=== PATIENT | male | born 1970 | race Caucasian/White ===

== ENCOUNTER 2018-04-24 06:28 | Day surgery (SDC) | payer BC ==
[2018-04-24] MEDS ORDERED: DIPRIVAN 200 MG/20 ML IV ONE (06:29)
[2018-04-24] MEDS ORDERED: Lactated Ringers 1,000 ML IV ONE (06:40)
[2018-04-24] MEDS ORDERED: Lactated Ringers 1,000 ML IV SCH (07:00)
[2018-04-24] MEDS ORDERED: GlucaGen 1 MG ONE (08:35)
[2018-04-24 09:21] VITALS: O2SAT 98
[2018-04-24 09:39] VITALS: BP 109/69; PULSE 55
--- NOTE | 2018-04-24 12:42 | OP ---
SURGERY DATE/TIME: 04/24/2018 0822 PREOPERATIVE DIAGNOSIS: Screening. POSTOPERATIVE DIAGNOSIS: Normal. PROCEDURE: Colonoscopy complete to cecum. SURGEON: Nitish Eduardo M.D. ANESTHESIA: MAC. COMPLICATIONS: None. CONDITION: Stable. INDICATION: A patient requiring evaluation. DESCRIPTION OF PROCEDURE: Taken to endoscopy. MAC sedation provided. Anal digital examination satisfactory. Prostate satisfactory. Scope advanced to the cecum. Base of cecum, ileocecal valve and appendiceal orifice, ascending, hepatic, transverse, splenic, descending, sigmoid, rectum, anus normal. The patient tolerated the procedure well. IMPRESSION: Normal examination. Ten year follow up unless symptoms.
== END 2018-04-24 09:35 | disposition home or self-care (01) ==
LOC: SDC 06:28
PROVIDERS: ATTEND Surgery
DX: Z12.11 Encounter for screening for malignant neoplasm of colon (principal)
CPT/HCPCS: J1610; J2704

== ENCOUNTER 2019-04-12 14:09 | Emergency (ER) | payer BC ==
[2019-04-12] MEDS ORDERED: MORPHINE SULFATE 4 MG INJ IV ONE (14:29)
[2019-04-12] MEDS ORDERED: Zofran 4 MG/2 ML VIAL IV ONE (14:29)
--- NOTE | 2019-04-12 14:29 | ERPHSYRPT ---
- History of Present Illness Time Seen by Provider: 04/12/19 14:20 Historian: patient Exam Limitations: no limitations Patient Subjective Stated Complaint: STATES THIS MORNING HAD SUDDEN ONSET RLQ ABD PAIN THAT RADIATES INTO RIGHT LOWER BACK. VOMITED TIMES ONE IN ER WAITING ROOM Triage Nursing Assessment: AMBULATED TO ROOM PER SELF. SKIN W/D, COLOR NORMAL. ABD SOFT, TENDER. NORMAL BOWEL SOUNDS. Physician History: about 2 hours ago pt started with RLQ abdominal pain radiating into the right lower back with nausea and vomiting x1; last bm was today and small without blood. pt denies fever, chest pain, dysuria. Allergies/Adverse Reactions: No Known Drug Allergies Allergy (Verified 04/12/19 14:22) Hx Tetanus, Diphtheria Vaccination/Date Given: Yes Hx Influenza Vaccination/Date Given: Yes Hx Pneumococcal Vaccination/Date Given: No - Review of Systems Constitutional: No Fever Respiratory: No Dyspnea Cardiac: No Chest Pain Abdominal/Gastrointestinal: Abdominal Pain (rlq pain today.), Nausea, Vomiting Genitourinary Symptoms: No Dysuria Musculoskeletal: Back Pain (right lower back pain today.) All Other Systems: Reviewed and Negative - Past Medical History Pertinent Past Medical History: No Neurological History: No Pertinent History ENT History: No Pertinent History Cardiac History: No Pertinent History Respiratory History: No Pertinent History Endocrine Medical History: No Pertinent History Musculoskeletal History: No Pertinent History GI Medical History: No Pertinent History History: No Pertinent History Psycho-Social History: No Pertinent History Male Reproductive Disorders: No Pertinent History - Past Surgical History Past Surgical History: Yes Neuro Surgical History: No Pertinent History Cardiac: No Pertinent History Respiratory: No Pertinent History Gastrointestinal: No Pertinent History Genitourinary: No Pertinent History Musculoskeletal: No Pertinent History Male Surgical History: No Pertinent History - Social History Smoking Status: Never smoker Exposure to second hand smoke: No Drug Use: none Patient Lives Alone: No - Nursing Vital Signs Nursing Vital Signs: Initial Vital Signs Temperature 97.5 F 04/12/19 14:12 Pulse Rate 56 L 04/12/19 14:12 Respiratory Rate 16 04/12/19 14:12 Blood Pressure 148/78 04/12/19 14:12 O2 Sat by Pulse Oximetry 99 04/12/19 14:12 Pain Scale Pain Intensity 8 - Physical Exam General Appearance: alert Eye Exam: PERRL/EOMI Ears, Nose, Throat Exam: pharynx normal, moist mucous membranes Neck Exam: normal inspection Respiratory Exam: lungs clear Cardiovascular Exam: normal heart sounds Gastrointestinal/Abdomen Exam: soft, normal bowel sounds, tenderness (mild RLQ tenderness) Back Exam: normal inspection Extremity Exam: No pedal edema Neurologic Exam: alert, cooperative Skin Exam: warm, dry SpO2 Interpretation: normal SpO2: 99 O2 Delivery: Room Air - CT Exams Abdomen/Pelvis CT Interpretation: Tele-radiologist Report (no acute findings) Ordered Tests: Active Orders 24 hr Category Date Time Status IV Insertion STAT Care 04/12/19 14:29 Active ABDOMEN AND PELVIS W/0 CONTRAS [CT] Stat Exams 04/12/19 14:30 Taken AMYLASE Stat Lab 04/12/19 14:30 Completed CBC W DIFF Stat Lab 04/12/19 14:30 Completed CMP Stat Lab 04/12/19 14:30 Completed CULTURE,URINE Stat Lab 04/12/19 14:30 Received LIPASE Stat Lab 04/12/19 14:30 Completed UA W/RFX UR CULTURE Stat Lab 04/12/19 14:30 Completed Medication Summary Generic Name Dose Route Start Last Admin Trade Name Freq PRN Reason Stop Dose Admin Sodium Chloride 1,000 mls @ 100 mls/hr 04/12/19 14:30 04/12/19 14:40 Sodium Chloride 0.9% 1000 Ml IV 05/12/19 14:29 100 mls/hr .Q10H MARCELA Administration Discontinued Medications Generic Name Dose Route Start Last Admin Trade Name Freq PRN Reason Stop Dose Admin Hydromorphone HCl 1 mg 04/12/19 15:29 04/12/19 15:31 Hydromorphone 1 Mg/Ml Ampule IV 04/12/19 15:30 1 mg STAT ONE Administration Hydromorphone HCl Confirm 04/12/19 15:30 Hydromorphone 1 Mg/Ml Ampule Administered 04/12/19 15:31 Dose 1 mg .ROUTE .STK-MED ONE Morphine Sulfate 4 mg 04/12/19 14:29 04/12/19 14:40 Morphine Sulfate 4 Mg Inj IV 04/12/19 14:30 4 mg STAT ONE Administration Morphine Sulfate Confirm 04/12/19 14:32 Morphine Sulfate 4 Mg Inj Administered 04/12/19 14:33 Dose 4 mg .ROUTE .STK-MED ONE Ondansetron HCl 4 mg 04/12/19 14:29 04/12/19 14:40 Zofran 4 Mg/2 Ml Vial IV 04/12/19 14:30 4 mg STAT ONE Administration Ondansetron HCl Confirm 04/12/19 14:32 Zofran 4 Mg/2 Ml Vial Administered 04/12/19 14:33 Dose 4 mg .ROUTE .STK-MED ONE Lab/Rad Data: Laboratory Result Diagrams 04/12/19 14:30 04/12/19 14:30 Laboratory Results 04/12/19 04/12/19 04/12/19 Range/Units 14:30 14:30 14:30 WBC 8.2 (4.0-10.5) K/mm3 RBC 5.32 (4.1-5.6) M/mm3 Hgb 15.8 (12.5-18.0) gm/dl Hct 47.1 (42-50) % MCV 88.5 (78-100) fl MCH 29.7 (26-32) pg MCHC 33.5 (32-36) g/dl RDW 12.3 (11.5-14.0) % Plt Count 204 (150-450) K/mm3 MPV 10.5 (7.5-11.0) fl Gran % 61.9 (36.0-66.0) % Eos # (Auto) 0.07 (0-0.5) Absolute Lymphs (auto) 2.13 (1.0-4.6) Absolute Monos (auto) 0.90 (0.0-1.3) Lymphocytes % 25.8 (24.0-44.0) % Monocytes % 10.9 (0.0-12.0) % Eosinophils % 0.8 (0.00-5.0) % Basophils % 0.6 (0.0-0.4) % Absolute Granulocytes 5.09 (1.4-6.9) Basophils # 0.05 (0-0.4) Sodium 142 (137-145) mmol/L Potassium 3.9 (3.5-5.1) mmol/L Chloride 104 (98-107) mmol/L Carbon Dioxide 30 (22-30) mmol/L Anion Gap 12.7 (5-15) MEQ/L BUN 18 (9-20) mg/dL Creatinine 1.06 (0.66-1.25) mg/dL Estimated GFR > 60.0 ML/MIN Glucose 112 H (74-106) mg/dL Calcium 9.8 (8.4-10.2) mg/dL Total Bilirubin 2.20 H (0.2-1.3) mg/dL AST 28 (17-59) U/L ALT 27 (0-50) U/L Alkaline Phosphatase 53 (38-126) U/L Serum Total Protein 7.9 (6.3-8.2) g/dL Albumin 4.6 (3.5-5.0) g/dL Amylase 93 (30-110) U/L Lipase 92 (23-300) U/L Urine Color YELLOW (YELLOW) Urine Appearance CLEAR (CLEAR) Urine pH 6.0 (5-6) Ur Specific [place] 1.024 (1.005-1.025) Urine Protein NEGATIVE (Negative) Urine Ketones NEGATIVE (NEGATIVE) Urine Blood MODERATE (0-5) Edwar/ul Urine Nitrite NEGATIVE (NEGATIVE) Urine Bilirubin NEGATIVE (NEGATIVE) Urine Urobilinogen 4 (0-1) mg/dL Ur Leukocyte Esterase NEGATIVE (NEGATIVE) Urine WBC (Auto) NONE (0-5) /HPF Urine RBC (Auto) 3-5 (0-2) /HPF U Epithel Cells (Auto) NONE (FEW) /HPF Urine Bacteria (Auto) NONE (NEGATIVE) /HPF Urine Mucus (Auto) SLIGHT (NEGATIVE) /HPF Urine Culture Reflexed YES (NO) Urine Glucose NEGATIVE (NEGATIVE) mg/dL - Progress Progress: improved Progress Note: 04/12/19 15:54 pt refuses hospitalization. - Departure Departure Disposition: Home Clinical Impression: Abdominal pain Condition: Fair Critical Care Time: No Referrals: CHERRY MICHAEL [ACTIVE STAFF] - Instructions: Acute Abdomen (Belly Pain), Adult (DC) Additional Instructions: follow up with dr tellez tomorrow. Prescriptions: Ondansetron ODT 4 MG [Zofran Odt 4 mg] 4 mg PO Q6H PRN PRN #10 tab.rapdis PRN Reason: Nausea/Vomiting
[2019-04-12] MEDS ORDERED: Sodium Chloride 0.9% 1000 ML 1,000 ML IV SCH (14:30)
[2019-04-12] MEDS ORDERED: MORPHINE SULFATE 4 MG INJ ONE (14:32)
[2019-04-12] MEDS ORDERED: Sodium Chloride 0.9% 1000 ML 1,000 ML ONE (14:32)
[2019-04-12] MEDS ORDERED: Zofran 4 MG/2 ML VIAL ONE (14:32)
[2019-04-12 14:51] LABS: Absolute Neutrophil Ct (ANC) 5.09 (1.4-6.9); BASOPHIL % 0.6 % (0.0-0.4); Basophil (Absolute #) 0.05 (0-0.4); Eosinophil % 0.8 % (0.00-5.0); Eosinophil (Absolute #) 0.07 (0-0.5); Hematocrit 47.1 % (42-50); Hemoglobin 15.8 gm/dl (12.5-18.0); Lymphocyte (Absolute #) 2.13 (1.0-4.6); Lymphocytes % 25.8 % (24.0-44.0); Mean Cell Volume 88.5 fl (78-100); Mean Corpuscular Hemoglobin 29.7 pg (26-32); Mean Corpuscular Hgb Concent. 33.5 g/dl (32-36); Mean Platelet Volume 10.5 fl (7.5-11.0); Monocytes % 10.9 % (0.0-12.0); Neutrophil % 61.9 % (36.0-66.0); Platelet Count 204 K/mm3 (150-450); Red Blood Count 5.32 M/mm3 (4.1-5.6); Red Cell Distribution Width 12.3 % (11.5-14.0); White Blood Count 8.2 K/mm3 (4.0-10.5)
[2019-04-12 15:20] LABS: Appearance CLEAR (CLEAR); Bilirubin NEGATIVE (NEGATIVE); Blood MODERATE Ery/ul (0-5); Glucose NEGATIVE (NEGATIVE); Ketones NEGATIVE (NEGATIVE); Leukocyte Esterase NEGATIVE (NEGATIVE); Mucus SLIGHT /HPF (NEGATIVE); Nitrite NEGATIVE (NEGATIVE); Protein,Urine Dip NEGATIVE (Negative); Specific Gravity 1.024 (1.005-1.025); Urobilinogen 4 mg/dL (0-1)
[2019-04-12] MEDS ORDERED: Hydromorphone 1 mg/ml Ampule IV ONE (15:29)
[2019-04-12] MEDS ORDERED: Hydromorphone 1 mg/ml Ampule ONE (15:30)
[2019-04-12 15:42] LABS: ALBUMIN 4.6 g/dL (3.5-5.0); ALKALINE PHOSPHATASE 53 U/L (38-126); AMYLASE 93 U/L (30-110); ANION GAP 12.7 MEQ/L (5-15); BLOOD UREA NITROGEN 18 mg/dL (9-20); CHLORIDE 104 mmol/L (98-107); Calcium 9.8 mg/dL (8.4-10.2); Carbon Dioxide 30 mmol/L (22-30); Creatinine 1 1.06 mg/dL (0.66-1.25); Glucose 112 mg/dL (74-106); LIPASE 92 U/L (23-300); Potassium 3.9 mmol/L (3.5-5.1); SGOT/AST 28 U/L (17-59); SGPT/ALT 27 U/L (0-50); SODIUM 142 mmol/L (137-145); Total Protein 7.9 g/dL (6.3-8.2)
[2019-04-12] MEDS ORDERED: TORAdol 30 mg Injection IV ONE (15:53)
[2019-04-12] MEDS ORDERED: TORAdol 30 mg Injection ONE (15:56)
[2019-04-12 16:04] VITALS: BP 133/79; PULSE 59; O2SAT 97
--- NOTE | 2019-04-12 18:45 | XRAY ---
Indication: Right lower quadrant pain. Multiple contiguous axial images obtained through the abdomen and pelvis without contrast as ordered. Comparison: None Lung bases demonstrates mild bilateral dependent atelectasis. No infiltrate or effusion. Heart is not enlarged. Stomach is distended with food/fluid. Noncontrasted stomach and bowel loops appear nonobstructed. Normal appendix. No free fluid/air. There is a 1-2 mm right UVJ calculus (image 83) without hydroureter or hydronephrosis. Left kidney demonstrates nonobstructing punctate calculus. Remaining liver, gallbladder, pancreas, spleen, adrenal glands, kidneys, ureters, and bladder appear unremarkable for noncontrast exam. Mild aortoiliac calcifications without AAA. Osseous structures intact. Impression: 1-2 mm right UVJ calculus without evidence for obstructive uropathy. Additional nonobstructing left renal micro-calculus. Comments: Preliminary interpretation was made by [facility] who does not report right UVJ calculus. Telephone report given to Dr. Tyler in the ER at 1846 hrs on Apr 122019.
== END 2019-04-12 16:04 | disposition home or self-care (01) ==
LOC: ED 14:09
DX: R10.31 Right lower quadrant pain (principal)
CPT/HCPCS: 36000; 36415; 74176; 80053; 81001; 82150; 83690; 85025; 87086; 96374; 96375; 99284; J1170; J1885; J2270; J2405